=== PATIENT | male | born 1955 | race Caucasian/White ===

== ENCOUNTER 2020-01-04 10:23 | Emergency (ER) | payer BC, OTHER ==
[~2020-01-04] VITALS: Ht 172 cm; Wt 80.1 kg
[2020-01-04] MEDS ORDERED: BETA15CR4 (10:42)
[2020-01-04] MEDS ORDERED: ATOR40TA70 (10:42)
[2020-01-04 10:46] LABS: BASOPHILS # (AUTO) 0.1 10^3/uL (0.0-0.1); BASOPHILS % (AUTO) 1 % (0-10); EOSINOPHILS # (AUTO) 0.2 10^3/uL (0.0-0.3); EOSINOPHILS % (AUTO) 2 % (0-10); HEMATOCRIT 46 % (40-54); HEMOGLOBIN 15.2 G/DL (13.3-17.7); LYMPHOCYTES # (AUTO) 3.4 X 10^3 (1.0-4.0); LYMPHOCYTES % (AUTO) 45 % (12-44); MEAN CORPUSCULAR HEMOGLOBIN 30 PG (25-34); MEAN CORPUSCULAR HGB CONC 33 G/DL (32-36); MEAN CORPUSCULAR VOLUME 89 FL (80-99); MEAN PLATELET VOLUME 10.2 FL (7.4-10.4); MONOCYTES # (AUTO) 0.6 X 10^3 (0.0-1.0); MONOCYTES % (AUTO) 8 % (0-12); NEUTROPHILS # (AUTO) 3.3 X 10^3 (1.8-7.8); NEUTROPHILS % (AUTO) 44 % (42-75); PLATELET COUNT 225 10^3/uL (130-400); WHITE BLOOD COUNT 7.5 10^3/uL (4.3-11.0)
--- NOTE | 2020-01-04 10:54 | Diagnostic Imaging Report ---
INDICATION hypertension and headache. Frontal chest obtained at 1040 a.m. There is post sternotomy change. The heart is borderline in size. There is no focal infiltrate or pneumothorax or pleural fluid. IMPRESSION: Poststernotomy change with no acute process in the chest. Dictated by: Dictated on workstation # [id number]
[2020-01-04] MEDS ORDERED: meTOprolol TARTRATE 25 MG (LOPRESSOR) TABLET PO ONE (11:00)
[2020-01-04] MEDS ORDERED: meTOprolol 5 MG/5 ML (LOPRESSOR) VIAL IV ONE ×3 (11:00→12:00)
[2020-01-04 11:01] LABS: BILIRUBIN,TOTAL 0.5 MG/DL (0.1-1.0); BUN/CREATININE RATIO 22; CALCIUM 9.1 MG/DL (8.5-10.1); CARBON DIOXIDE 24 MMOL/L (21-32); CHLORIDE 108 MMOL/L (98-107); CREATININE SERUM 1.01 MG/DL (0.60-1.30); GFR ESTIMATED > 60; GLUCOSE 107 MG/DL (70-105); POTASSIUM 3.9 MMOL/L (3.6-5.0); SODIUM 142 MMOL/L (135-145)
[2020-01-04 11:02] LABS: ALANINE AMINOTRANSFERASE 34 U/L (0-55); ALBUMIN 4.4 GM/DL (3.2-4.5); ALKALINE PHOSPHATASE 88 U/L (40-136)
--- NOTE | 2020-01-04 11:08 | ED Cardiac General ---
History of Present Illness General Chief Complaint: Cardiac/General Problems Stated Complaint: HIGH BP Nursing Triage Note: ARRIVED VIA AMB FROM 'S OFFICE WITH HYPERTENSION. COMPLAINS OF HEADACHE AND OCC CHEST PAIN. History of Present Illness Date Seen by Provider: Jan 04, 2020 Time Seen by Provider: 10:55 Initial Comments 64-year-old male presents from primary care doctor's office with concern over elevated blood pressure. His PCP spoke to me about no history of hypertension, on no blood pressure medicine with history of CAD and an abnormal stress test which led to open heart surgery a few years ago. Patient quit smoking at that time and has been doing rather well. Today on a routine visit, noted elevated blood pressure as well as history of occasional exertional chest pain, which patient says he just has to stop what he stone and the pain goes away. Otherwise today he is feeling fine, denies chest pain or shortness of air. Denies swelling of his extremities. Denies recent illness. Allergies and Home Medications Allergies Coded Allergies: No Known Drug Allergies (Unverified , 01/04/20) Home Medications Chlorthalidone 25 Mg Tablet, 25 MG PO DAILY Prescribed by: MANUELA SALCIDO on 01/04/20 1124 Metoprolol Succinate 50 Mg Tab.er.24h, 50 MG PO DAILY Prescribed by: MANUELA SALCIDO on 01/04/20 1124 Patient Home Medication List Home Medication List Reviewed: Yes Review of Systems Review of Systems Constitutional: no symptoms reported; No diaphoresis, No dizziness, No fever, No malaise, No weakness Respiratory: Denies Cough, Denies Shortness of Air; SOA With Exertion (intermittently, not currently) Cardiovascular: Chest Pain (NOT currently, but intermittently w activity) Gastrointestinal: No Symptoms Reported; Denies Abdomen Distended, Denies Abdominal Pain, Denies Nausea, Denies Vomiting Musculoskeletal: No back pain, No joint pain Skin: No change in color, No rash Psychiatric/Neurological: Denies Headache, Denies Numbness, Denies Paresthesia Past Epszkdj-Qcaaqg-Oyveqw Hx Past Med/Social Hx: Reviewed Nursing Past Med/Soc Hx Patient Social History Alcohol Use: Denies Use Recreational Drug Use: No Smoking Status: Former Smoker Recent Foreign Travel: No Contact w/Someone Who Travel: No Recent Infectious Disease Expo: No Recent Hopitalizations: No Seasonal Allergies Seasonal Allergies: No Past Medical History Surgeries: Yes (CYST REMOVED FROM NECK) CABG Respiratory: No Cardiac: Yes Heart Attack, High Cholesterol Neurological: No Genitourinary: No Gastrointestinal: No Musculoskeletal: No Endocrine: No HEENT: No Cancer: No Psychosocial: No Physical Exam Vital Signs Vital Signs - First Documented 01/04/20 10:25 Temp 36.8 Pulse 73 Resp 16 B/P (MAP) 207/87 (127) Pulse Ox 94 O2 Delivery Room Air Capillary Refill : Less Than 3 Seconds Height, Weight, BMI Height: '" Weight: lbs. oz. kg; 27.00 BMI Method: General Appearance: No Apparent Distress, WD/WN HEENT: PERRL/EOMI, Normal ENT Inspection Neck: Non Tender, Supple Respiratory: Chest Non Tender, Lungs Clear, Normal Breath Sounds, No Accessory Muscle Use, No Respiratory Distress Cardiovascular: Regular Rate, Rhythm, No Edema, No Gallop, Normal Peripheral Pulses Gastrointestinal: Normal Bowel Sounds, No Organomegaly, No Pulsatile Mass, Non Tender, Soft; No Distended, No Guarding Extremity: Normal Capillary Refill, Normal Inspection, Normal Range of Motion, Non Tender, No Calf Tenderness, No Pedal Edema Neurologic/Psychiatric: Alert, Oriented x3, No Motor/Sensory Deficits, Normal Mood/Affect Skin: Normal Color, Warm/Dry Progress/Results/Core Measures Results/Orders Lab Results Laboratory Tests Test 01/04/20 10:30 Range/Units White Blood Count 7.5 4.3-11.0 10^3/uL Red Blood Count 5.15 4.35-5.85 10^6/uL Hemoglobin 15.2 13.3-17.7 G/DL Hematocrit 46 40-54 % Mean Corpuscular Volume 89 80-99 FL Mean Corpuscular Hemoglobin 30 25-34 PG Mean Corpuscular Hemoglobin Concent 33 32-36 G/DL Red Cell Distribution Width 14.6 H 10.0-14.5 % Platelet Count 225 130-400 10^3/uL Mean Platelet Volume 10.2 7.4-10.4 FL Immature Granulocyte % (Auto) 0 % Neutrophils (%) (Auto) 44 42-75 % Lymphocytes (%) (Auto) 45 H 12-44 % Monocytes (%) (Auto) 8 0-12 % Eosinophils (%) (Auto) 2 0-10 % Basophils (%) (Auto) 1 0-10 % Neutrophils # (Auto) 3.3 1.8-7.8 X 10^3 Lymphocytes # (Auto) 3.4 1.0-4.0 X 10^3 Monocytes # (Auto) 0.6 0.0-1.0 X 10^3 Eosinophils # (Auto) 0.2 0.0-0.3 10^3/uL Basophils # (Auto) 0.1 0.0-0.1 10^3/uL Immature Granulocyte # (Auto) 0.0 0.0-0.1 10^3/uL Sodium Level 142 135-145 MMOL/L Potassium Level 3.9 3.6-5.0 MMOL/L Chloride Level 108 H 98-107 MMOL/L Carbon Dioxide Level 24 21-32 MMOL/L Anion Gap 10 5-14 MMOL/L Blood Urea Nitrogen 22 H 7-18 MG/DL Creatinine 1.01 0.60-1.30 MG/DL Estimat Glomerular Filtration Rate > 60 BUN/Creatinine Ratio 22 Glucose Level 107 H 70-105 MG/DL Calcium Level 9.1 8.5-10.1 MG/DL Corrected Calcium 8.8 8.5-10.1 MG/DL Total Bilirubin 0.5 0.1-1.0 MG/DL Aspartate Amino Transf (AST/SGOT) 26 5-34 U/L Alanine Aminotransferase (ALT/SGPT) 34 0-55 U/L Alkaline Phosphatase 88 40-136 U/L Troponin I < 0.30 <0.30 NG/ML Total Protein 7.0 6.4-8.2 GM/DL Albumin 4.4 3.2-4.5 GM/DL My Orders Orders - MANUELA SALCIDO DO Ed Iv/Invasive Line Start (01/04/20 10:27) Chest 1 View Ap/Pa Only (01/04/20 10:27) Ekg Tracing (01/04/20 10:27) Cbc With Automated Diff (01/04/20 10:27) Comprehensive Metabolic Panel (01/04/20 10:27) Troponin I Fs (01/04/20 10:27) Metoprolol Tartrate Injection (Lopressor (01/04/20 11:00) Metoprolol Tartrate (Ir) Tab (Lopressor (01/04/20 11:00) Metoprolol Tartrate Injection (Lopressor (01/04/20 11:45) Metoprolol Tartrate Injection (Lopressor (01/04/20 12:00) Medications Given in ED Current Medications Medications Dose Ordered Sig/Narda Route Start Time Stop Time Status Last Admin Dose Admin Metoprolol Tartrate 5 mg ONCE ONCE IV 01/04/20 11:00 01/04/20 11:01 DC 01/04/20 11:06 5 MG Metoprolol Tartrate 5 mg ONCE ONCE IV 01/04/20 11:45 01/04/20 11:46 DC 01/04/20 11:37 5 MG Metoprolol Tartrate 50 mg ONCE ONCE PO 01/04/20 11:00 01/04/20 11:01 DC 01/04/20 11:06 50 MG Vital Signs/I&O 01/04/20 10:25 Temp 36.8 Pulse 73 Resp 16 B/P (MAP) 207/87 (127) Pulse Ox 94 O2 Delivery Room Air Blood Pressure Mean: 127 Progress Progress Note : Progress Note Normal ECG, labs and CXR. BP remained elevated > 200 systolic.....given Metoprolol 5mg IV x2 as welll as Metoprolol 50mg po and came down to 170/120. Patient remained asymptomatic for entire ER stay. Discussed follow up with Dr Silveira on Wednesday, new Rx's and to return for any chest pain. Discussed w Jaquelin @ [phone]. Initial ECG Impression Date: Jan 04, 2020 Initial ECG Impression Time: 10:37 Initial ECG Rate: 77 Initial ECG Rhythm: Normal Sinus Initial ECG Intervals: Normal Initial ECG Impression: Normal Initial ECG Comparisson: No Previous ECG Available Comment LVH without ST changes Departure Impression Primary Impression: Asymptomatic hypertensive urgency Additional Impression: Personal history of coronary artery disease Disposition: HOME, SELF-CARE Condition: Stable Departure-Patient Inst. Decision time for Depature: 12:01 Referrals: PILY SILVEIRA MD (PCP/Family) Primary Care Physician Patient Instructions: High Blood Pressure (DC), Chest Pain (DC) Add. Discharge Instructions: See Dr Silveira on Sunday 01/07 for follow up regarding your elevated Blood Pressure. All discharge instructions reviewed with patient and/or family. Voiced understanding. Scripts Chlorthalidone (Chlorthalidone) 25 Mg Tablet 25 MG PO DAILY, #30 TAB Prov: MANUELA SALCIDO DO 01/04/20 Metoprolol Succinate (Metoprolol Succinate) 50 Mg Tab.er.24h 50 MG PO DAILY, #30 TAB Prov: MANUELA SALCIDO DO 01/04/20 Work/School Note: Work Release Form Date Seen in the Emergency Department: Jan 04, 2020 Return to Work: Jan 05, 2020 Restrictions: No Restrictions MANUELA SALCIDO DO Jan 04, 2020 11:08
[2020-01-04] MEDS ORDERED: CHLO25TA22 PO (11:24)
[2020-01-04] MEDS ORDERED: METO50TA7 PO (11:24)
--- NOTE | 2020-01-04 11:33 | NUR ---
IN TALKING WITH THE PT AT THIS TIME.
--- NOTE | 2020-01-04 12:00 | NUR ---
bp 171/123. DR NOTIFIED ET 3RD DOSE OF LOPRESSER HELD.
[2020-01-04 12:15] VITALS: BP 171/123
== END 2020-01-04 12:15 | disposition home or self-care (01) ==
LOC: ER FS 10:26
DX: I16.0 Hypertensive urgency (principal); I25.2 Old myocardial infarction; I25.10 Atherosclerotic heart disease of native coronary artery without angina pectoris; Z95.1 Presence of aortocoronary bypass graft; Z87.891 Personal history of nicotine dependence
CPT/HCPCS: 36415; 71045; 80053; 84484; 85025; 93005

== ENCOUNTER 2021-10-28 11:37 | Emergency (ER) | payer MEDICARE, OTHER ==
[~2021-10-28] VITALS: Ht 175.3 cm; Wt 77.1 kg
[~2021-10-28 11:37] MED LIST: ATOR40TA70; BETA15CR4; CHLO25TA22 PO; METO50TA7 PO
[2021-10-28 11:45] VITALS: BP 157/77
[2021-10-28] MEDS ORDERED: TETANUS,DIPTH,PERTUSS P/F (BOOSTRIX) 0.5 ML VIAL IM ONE (12:00)
--- NOTE | 2021-10-28 12:03 | ED Upper Extremity ---
General Chief Complaint: Laceration Stated Complaint: LT WRIST LAC Source: patient Exam Limitations: no limitations History of Present Illness Date Seen by Provider: Oct 28, 2021 Time Seen by Provider: 11:30 Initial Comments Patient is a 66-year-old right-handed male who presents with a 6 mm laceration to the extensor surface of his distal forearm forearm, while using a facing grinder at work prior to to arrival. Patient has a laceration is deep, jagged and clean. No other symptoms or complaint. Date of last tetanus is unknown Onset: just prior to arrival Severity: moderate Pain/Injury Location: left wrist Method of Injury: other Modifying Factors: Improves With Other Allergies and Home Medications Allergies Coded Allergies: No Known Drug Allergies (Unverified , 01/04/20) Patient Home Medication List Home Medication List Reviewed: No Atorvastatin Calcium (Atorvastatin Calcium) 40 Mg Tablet, (Reported) Entered as Reported by: DENTON CORDOVA on 01/04/20 1042 Betamethasone Dipropionate (Betamethasone Dipropionate) 15 Gm Cream..g., (Reported) Entered as Reported by: DENTON CORDOVA on 01/04/20 1042 Chlorthalidone (Chlorthalidone) 25 Mg Tablet, 25 MG PO DAILY Prescribed by: MANUELA SALCIDO on 01/04/20 1124 Metoprolol Succinate (Metoprolol Succinate) 50 Mg Tab.er.24h, 50 MG PO DAILY Prescribed by: MANUELA SALCIDO on 01/04/20 1124 Review of Systems Constitutional: see HPI Musculoskeletal: see HPI Past Vqswruc-Tbzejc-Adotto Hx Patient Social History Tobacco Use?: No Seasonal Allergies Seasonal Allergies: No Past Medical History Surgeries: Yes (CYST REMOVED FROM NECK) CABG Respiratory: No Cardiac: Yes Heart Attack, High Cholesterol Neurological: No Genitourinary: No Gastrointestinal: No Musculoskeletal: No Endocrine: No HEENT: No Cancer: No Psychosocial: No Physical Exam Vital Signs Capillary Refill : Height, Weight, BMI Height: '" Weight: lbs. oz. kg; 27.00 BMI Method: General Appearance: WD/WN, no apparent distress Elbow/Forearm: soft tissue tenderness (8 cm full-thickness jagged horizontal laceration to the extensor surface of distal forearm. No tendon or vessel involvement. No foreign bodies are present. Wound is clean.) Wrist: Yes soft tissue tenderness, Yes swelling Procedures/Interventions Wound Location: Upper Extremities (Left forearm) Wound Length (cm): 6 (cm) Wound's Depth, Shape: sub Q Wound Explored: clean Irrigated w/ Saline (ccs): 250 Betadine Prep?: No Wound Debrided: minimal Staple Repair: Stapler 35W Number of Sutures: 7 Sterile Dressing Applied?: Yes Progress/Results/Core Measures Results/Orders My Orders Orders - RADHA TORRES DO Dipht,Pertuss(Acell),Tet Adult (Boostrix (10/28/21 12:00) Departure Communication (Admissions) Family Conversation Isolated left forearm wound. Wound cleansed closed and stapled. Tetanus updated and first dose of antibiotics given. Typical wound care instructions given. Return precautions reviewed. Patient verbalized understanding agreement discharge instructions prior to departure. Impression Primary Impression: Laceration of left forearm Disposition: HOME, SELF-CARE Condition: Stable Departure-Patient Inst. Decision time for Depature: 12:03 Referrals: PILY LEMONS MD (PCP) Primary Care Physician Patient Instructions: Laceration Repair With Saima ED Add. Discharge Instructions: Please keep wound clean and dry bandage. Take ibuprofen for pain and antibiotic s as directed. Follow-up with your PCP or return to the ED in 10 to 12 days for staple removal. Return sooner if signs of infection. All discharge instructions reviewed with patient and/or family. Voiced understanding. Scripts Cephalexin (Cephalexin) 500 Mg Tablet 500 MG PO TID, #20 TAB Prov: RADHA TORRES DO 10/28/21 RADHA TORRES DO Oct 28, 2021 12:03
[2021-10-28] MEDS ORDERED: CEPH500T PO (12:04)
== END 2021-10-28 12:10 | disposition home or self-care (01) ==
LOC: EDUNIT# 11:37 → ER FS 11:39
DX: S51.812A Laceration without foreign body of left forearm, initial encounter (principal); Z28.310 Unvaccinated for COVID-19; Z23 Encounter for immunization; W31.89XA Contact with other specified machinery, initial encounter; Y92.59 Other trade areas as the place of occurrence of the external cause; Y99.0 Civilian activity done for income or pay
CPT/HCPCS: 90715